=== PATIENT | male | born 1955 | race Caucasian/White ===

== ENCOUNTER → 2017-08-19 | Outpatient (REF) ==
[~2017-08-19] MED LIST: BENICAR 20MG TA20 MG PO
== END ==
LOC: COL.CARD 15:51
DX: I48.91 Unspecified atrial fibrillation (principal); R00.0 Tachycardia, unspecified

== ENCOUNTER → 2018-08-06 | Outpatient (REF) | LOC: ZLAB.WCH 08:53 | DX: Z01.89 Encounter for other specified special examinations (principal) | CPT/HCPCS: G0103 ==

== ENCOUNTER → 2018-08-14 | Outpatient (REF) | LOC: ZLAB.WCH 16:16 | DX: Z01.89 Encounter for other specified special examinations (principal) ==

== ENCOUNTER 2020-07-29 12:02 | Observation (INO) | payer SELFPAY ==
[2020-07-29] VITALS (8 sets, daily range): BP systolic 119–149; BP diastolic 68–83; PULSE 56–66; TEMP 98–98.8
[~2020-07-29] VITALS: Ht 180.3 cm; Wt 118.2 kg
[2020-07-29] MEDS ORDERED: ELIQUIS 5MG PO (13:15)
[2020-07-29] MEDS ORDERED: TOPROL XL100 MG PO (13:15)
[2020-07-29] MEDS ORDERED: ASPIRIN 81M81 MG/TA2 PO (13:16)
[2020-07-29] MEDS ORDERED: TAMBOCOR 1100 MG/TAB (13:22)
--- NOTE | 2020-07-29 19:55 | NUR ---
PT RESTING COMFORTABLY IN BED. LT LEG ELEVATED ON PILLOWS. ICE PACK IN PLACE. PEDRO CDI. HEMOVAC HAS NO DRAINAGE NOTED. PT VISITING WITH . CALL LIGHT IN REACH. PT VOIDED W/O DIFFICULTY PER URINAL.
--- NOTE | 2020-07-29 19:59 | NUR ---
Patient has done well since arrival to room 324 from OR. Alert and oriented x3. Spouse at bedside. LLE with acwrap and hemovac with minimal drainage present. Post op VSS, Postop fluids infusing. Tolerating diet without difficulties. Denies pain at this time. Reported off to scene shifter.
[2020-07-30 04:00] VITALS: BP 138/66; PULSE 58; TEMP 97.6
--- NOTE | 2020-07-30 06:36 | NUR ---
PT MOVING AROUND WELL. HAS X2 MORE DOSES OF ANCEF. PT DENIES PAIN THIS AM. NO DRG FROM HEMOVAC. NO DRG TO DRSG. [facility] WNL. NO NEEDS AT THIS TIME.
[2020-07-30 08:04] VITALS: BP 137/68; PULSE 65; TEMP 97.9
[2020-07-30] MEDS ORDERED: NORCO 325 MG-51 TAB PO (09:30)
[2020-07-30] MEDS ORDERED: CEPHALEXIN500 M1 PO (09:31)
[2020-07-30 12:00] VITALS: BP 143/67; PULSE 65; TEMP 97.6
--- NOTE | 2020-07-30 12:48 | NUR ---
PATIENT SHIFT ASSESSMENT COMPLETED AT THIS TIME. PATIENT DENIES COMPLAINTS OF PAIN. LLE ELEVATED ON PILLOWS WITH ICE PACK IN PLACE TO LEFT KNEE. CLARK WRAP DRESSING IS CD&I. POSITIVE PEDAL PULSES EQUAL BILATERALLY. CAP REFILL <3 SECONDS. CMS INTACT. PRESENT AT THE BEDSIDE. NO NEEDS AT THIS TIME.
--- NOTE | 2020-07-30 14:10 | NUR ---
PATIENT CALLED OUT REPORTING BLOOD COMING THROUGH HIS DRESSING. A SMALL AMOUNT OF FRESH BLOOD NOTED TO THE LATERAL ASPECT OF THE KNEE WHERE THE PATIENTS HEMOVAC DRAIN HAD BEEN REMOVED. PART OF THE CLARK WRAP REMOVED AND DRESSING REINFORCED WITH AN ABD PAD AND RE-WRAPPED WITH CLARK. LEG ELEVATED ON PILLOWS. NO NEEDS AT THIS TIME.
--- NOTE | 2020-07-30 15:27 | NUR ---
Plan to return home with Karen . Assessed client in room. Patient report no DME use. Patient reports the use of [facility] for medications. Patient reports PCP as Dr. Melania Cerna and needing a follow-up in two weeks. Patient indicated he has a workmans comp claim that will assist with the bill. Son Alex is an alternate contact for emergency . SW educated patient on services and community supports. Patient declines having additional needs. Nothing follows.
--- NOTE | 2020-07-30 15:30 | NUR ---
DISCHARGE INSTRUCTIONS REVIEWED WITH PATIENT AND . QUESTIONS SOUGHT AND ANSWERED. PATIEN PERSONAL BELONGINGS GATHERED. PATIENTS RIGHT WRIST INT DISCONTINUED PER PENDING DISCHARGE. TIP INTACT. PATIENT TOLERATED WELL. PATIENT TAKEN TO PERSONAL VEHICLE VIA WHEELCHAIR BY SURGICAL STAFF. PATIENT DISCHARGED.
== END 2020-07-30 15:30 | disposition home or self-care (01) ==
LOC: COL.ER 12:02 → SURG 18:23
PROVIDERS: ADMIT Orthopaedic Surgery
DX: S81.012A Laceration without foreign body, left knee, initial encounter (principal); S76.122A Laceration of left quadriceps muscle, fascia and tendon, initial encounter; I48.91 Unspecified atrial fibrillation; I10 Essential (primary) hypertension; Z79.01 Long term (current) use of anticoagulants; Z79.82 Long term (current) use of aspirin; Z85.828 Personal history of other malignant neoplasm of skin
CPT/HCPCS: G0008; G0378; J0690; J1885; J2704; J3010